=== PATIENT | male | born 1980 | race Two or more races ===

== ENCOUNTER 2020-10-26 11:43 | Emergency (ER) | payer MEDICAID ==
[~2020-10-26] VITALS: Ht 167.6 cm; Wt 104.0 kg
[2020-10-26] MEDS ORDERED: BACITRACIN ZINC OINT UDPKT TOP ONE (14:15)
[2020-10-26] MEDS ORDERED: LIDOCAINE 1%/EPI 1:100,000 10 ML VIAL IJ ONE (14:15)
[2020-10-26] MEDS ORDERED: LIDOCAINE HCL/EPINEPHRINE 1%-EPI 1:100,000 20 ML VIAL INFIL ONE (14:30)
[2020-10-26 15:42] VITALS: BP 148/75
== END 2020-10-26 15:43 | disposition home or self-care (01) ==
LOC: ER 11:43
DX: L72.3 Sebaceous cyst (principal)
CPT/HCPCS: 10060; 99283; A4217; J3490; Z7610; 99282

== ENCOUNTER 2023-09-17 20:37 | Emergency (ER) | payer MEDICAID ==
[~2023-09-17] VITALS: Ht 170.2 cm; Wt 104.0 kg
[2023-09-17 20:48] VITALS: BP 170/100; O2SAT 98
[2023-09-17] MEDS ORDERED: BACITRACIN ZINC OINT UDPKT TOP ONE (21:00)
[2023-09-17] MEDS ORDERED: LIDOCAINE HCL/PF 1% 10 MG/ML 5ML VIAL INFIL ONE (21:00)
[2023-09-17] MEDS ORDERED: TETANUS, DIPHTHERIA, PERTUSSIS VAC/PF 0.5ML (>10YR OLD) IM ONE ×2 (21:00→23:00)
[2023-09-17] MEDS ORDERED: SULF1TAB48 MT (23:29)
[2023-09-17] MEDS ORDERED: CEPH500C2 MT (23:29)
[2023-09-18 00:06] VITALS: PULSE 94; RESP 16; TEMP 98.8
== END 2023-09-18 00:07 | disposition home or self-care (01) ==
LOC: ER 20:37
DX: L72.3 Sebaceous cyst (principal)
CPT/HCPCS: 90715; 10060; 90471; 99283; Z7610 ×4

== ENCOUNTER 2024-06-24 20:00 | Emergency (ER) | payer MEDICAID, OTHER ==
[~2024-06-24] VITALS: Ht 167.6 cm; Wt 105.0 kg
[~2024-06-24 20:00] MED LIST: CEPH500C2 MT; SULF1TAB48 MT
[2024-06-24 20:07] VITALS: O2SAT 100
[2024-06-24] MEDS: LIDOCAINE HCL/PF 1% 10 MG/ML 5ML VIAL INFIL ONE (21:15)
[2024-06-24] MEDS ORDERED: IBUP-2028 MT (21:39)
[2024-06-24 22:15] VITALS: BP 144/74; PULSE 110; RESP 18; TEMP 99.5
[2024-06-24] MEDS: SULFAMETHOXAZOLE/TRIMETHOPRIM 800/160MG TABLET PO ONE (22:17)
[2024-06-24] MEDS: BACITRACIN ZINC OINT UDPKT TOP ONE (22:17)
[2024-06-24] MEDS: CEPHALEXIN 250MG CAPSULE PO ONE (22:18)
[2024-06-24] MEDS: NAPROXEN 375MG TABLET PO ONE (22:18)
== END 2024-06-24 22:41 | disposition home or self-care (01) ==
LOC: ER 20:00
DX: L02.212 Cutaneous abscess of back [any part, except buttock and flank] (principal); Z79.899 Other long term (current) drug therapy
CPT/HCPCS: 99284; Z7610 ×4